=== PATIENT | female | born 1970 | race Caucasian/White ===

== ENCOUNTER 2018-12-31 11:16 | Emergency (ER) | payer MEDICARE ==
[2018-12-31 11:22] VITALS: BP 132/86; PULSE 92; RESP 16; TEMP 97.8; O2SAT 98
[2018-12-31] MEDS ORDERED: LORAZEPAM 0.5 MG TAB PO ONE (12:04)
[2018-12-31] MEDS ORDERED: LORAZEPAM 0.5 MG TAB ONE (12:06)
== END 2018-12-31 13:07 | disposition home or self-care (01) | DRG 880 ==
LOC: ED 11:16
DX: R45.851 Suicidal ideations (principal); E11.9 Type 2 diabetes mellitus without complications
CPT/HCPCS: 99283; A9270-GY

== ENCOUNTER 2019-01-03 12:12 | Emergency (ER) | payer MEDICARE ==
[2019-01-03 12:36] VITALS: TEMP 98.5
[2019-01-03] MEDS ORDERED: APAP/HYDROCODONE 1 EACH TABLET PO ONE (13:39)
[2019-01-03] MEDS ORDERED: APAP/HYDROCODONE 1 EACH TABLET ONE (13:41)
[2019-01-03] MEDS ORDERED: LIDOCAINE HCL 2% (VISCOUS) 15 ML SOL MT ONE (14:06)
[2019-01-03 14:10] VITALS: BP 114/75; PULSE 67; RESP 16; O2SAT 99
== END 2019-01-03 14:07 | disposition home or self-care (01) | DRG 159 ==
LOC: ED 12:12
DX: K08.89 Other specified disorders of teeth and supporting structures (principal); Z79.4 Long term (current) use of insulin
CPT/HCPCS: 99282; A9270-GY

== ENCOUNTER 2019-04-09 13:46 | Outpatient (CLI) | payer MEDICARE, MEDICAID ==
[2019-01-03 14:10] VITALS: O2SAT 99
== END 2019-04-09 13:47 | disposition home or self-care (01) | DRG 561 ==
LOC: CONVCARE 13:46
PROVIDERS: ATTEND Orthopaedic Surgery
DX: Z47.89 Encounter for other orthopedic aftercare (principal); Z98.890 Other specified postprocedural states
CPT/HCPCS: 73560; 73565

== ENCOUNTER 2019-05-18 12:47 | Emergency (ER) | payer MEDICARE, MEDICAID ==
[2019-05-18 13:02] VITALS: BP 119/75; PULSE 94; RESP 16; TEMP 98.2; O2SAT 98
[2019-05-18] MEDS: LIDOCAINE 1% W/EPI MPF 30 ML SOL INFIL ONE (13:55)
[2019-05-18] MEDS: BUPIVACAINE HCL 0.25% MPF 30 ML SOL INFIL ONE (13:55)
[2019-05-18] MEDS ORDERED: BUPIVACAINE HCL 0.5% MPF 10 ML SOL ONE (14:01)
[2019-05-18] MEDS ORDERED: LIDOCAINE 1% W/EPI MPF 30 ML SOL ONE (14:01)
== END 2019-05-18 14:12 | disposition home or self-care (01) | DRG 159 ==
LOC: ED 12:47
DX: K08.89 Other specified disorders of teeth and supporting structures (principal); G89.29 Other chronic pain
CPT/HCPCS: 99282